=== PATIENT | male | born 1935 | race Caucasian/White ===

== ENCOUNTER 2021-05-10 13:23 | Inpatient (IN) | payer MEDICARE, OTHER ==
[~2021-05-10] VITALS: Ht 182.9 cm; Wt 68.3 kg
[2021-05-10 14:24] LABS: BASO % 0.2 % (0.0-2.0); EOS % 0.2 % (0.0-4.0); GRAN % 86.6 % (42.2-75.2); HEMOGLOBIN 10.9 g/dl (13.5-18.0); LYMPH # 1.1 K/mm3 (1.2-3.4); LYMPH % 7.6 % (20.0-51.0); MEAN CELL VOLUME 87 fl (80.0-100.0); MEAN CORPUSCULAR HEMOGLOBIN 28 pg (27-31); MEAN CORPUSCULAR HGB CONC 32 g/dl (33.0-37.0); MEAN PLATELET VOLUME 10.5 fl (7.4-10.4); MONO # 0.7 K/mm3 (0.1-0.6); MONO % 4.7 % (1.7-9.3); PLATELET COUNT 241 K/mm3 (130-400); RED BLOOD COUNT 3.87 M/mm3 (4.20-5.60); REDCELL DISTRIBUTION WIDTH-CV 13.1 % (11.5-14.5)
[2021-05-10 14:25] LABS: HEMATOCRIT 33.7 % (42.0-52.0)
[2021-05-10 14:40] LABS: ALBUMIN 2.9 gm/dL (3.4-4.8); BILIRUBIN,TOTAL 1.3 mg/dL (0.2-1.2); CALCIUM 9.5 mg/dL (8.4-10.2); CREATININE, serum 1.27 mg/dL (0.72-1.25); TOTAL PROTEIN 7.4 gm/dL (6.2-8.1)
[2021-05-10 14:47] LABS: POTASSIUM 2.8 mmol/L (3.5-4.5)
[2021-05-10 14:48] LABS: TROPONIN-I 0.495 ng/mL (0.00-0.033)
[2021-05-10 15:13] LABS: COLLECTION METHOD CLEAN CATCH
[2021-05-10] MEDS ORDERED: ZOCOR 20MG20 MG PO (15:26)
[2021-05-10] MEDS ORDERED: PRILOSEC 20MG20 MG PO (15:26)
[2021-05-10] MEDS ORDERED: ZESTORETIC 12.51 TAB PO (15:26)
[2021-05-10] MEDS ORDERED: RT ADVAIR 128 DISKUS IH (15:26)
[2021-05-10 15:32] LABS: MUCOUS Present (NOT PRESENT); PH 6 (5-8); SQUAMOUS EPITHELIAL 0-2 /hpf (0-10); URINE APPEARANCE Hazy (CLEAR/HAZY); URINE BACTERIA None Seen /hpf (NONE SEEN); URINE BILIRUBIN Negative (NEGATIVE); URINE BLOOD Negative (NEGATIVE); URINE COLOR Amber (YELLOW); URINE GLUCOSE Negative (NEGATIVE); URINE KETONE 1+ (NEGATIVE); URINE LEUKOCYTE ESTERASE Negative (NEGATIVE); URINE NITRATE Negative (NEGATIVE); URINE PROTEIN(semi-quant) 1+ (NEGATIVE); URINE UROBILINOGEN >=4.0 (NEGATIVE)
[2021-05-10 17:51] VITALS: BP 159/71; PULSE 61; TEMP 98.5
[2021-05-10 20:10] VITALS: BP 124/53; PULSE 56; TEMP 97.5
--- NOTE | 2021-05-10 23:36 | NUR ---
Patient assessed around 1949. Droswy, awakens easily. Alert, oriented, and able to make needs known. High fall risk precautions in place. Peripheral IV to left forearm with IV fluids running per orders. Denies SOB and dyspnea. LS CTA. HRR. Telemetry in place. BSAx4. 1+ edema BLE. Voices no questions, needs, or concerns at this time. In bed with call light within reach. Bed alarm on. Called ERIC Amos around 1999 due to last Potassium being 2.8. Asked if she wanted it to be recheck, and ok with recheck with Troponin at 2099. Recheck of Tropnonin and Potassium came back critical. Updated ERIC Amos. Order to replace Potassium per protocol. MAR updated.
[2021-05-11] VITALS (7 sets, daily range): BP systolic 110–142; BP diastolic 48–64; PULSE 53–64; TEMP 97.5–99
--- NOTE | 2021-05-11 05:34 | NUR ---
Patient has been recieving IV Potassium per protocol. IV fluids continue per orders. Patient denies having pain and discomfort. Has used urinal with staff assistance during the night. Voices no questions, needs, or concerns at this time. In bed with call light within reach. Bed alarm on.
[2021-05-11 06:22] LABS: BASO % 0.2 % (0.0-2.0); EOS # 0.2 K/mm3 (0.0-0.7); EOS % 2.1 % (0.0-4.0); GRAN # 9.4 K/mm3 (1.4-6.5); GRAN % 81.2 % (42.2-75.2); LYMPH # 1.3 K/mm3 (1.2-3.4); LYMPH % 11.3 % (20.0-51.0); MEAN CELL VOLUME 91 fl (80.0-100.0); MEAN CORPUSCULAR HGB CONC 32 g/dl (33.0-37.0); MEAN PLATELET VOLUME 11.2 fl (7.4-10.4); MONO # 0.6 K/mm3 (0.1-0.6); MONO % 4.7 % (1.7-9.3); PLATELET COUNT 179 K/mm3 (130-400); RED BLOOD COUNT 2.74 M/mm3 (4.20-5.60); REDCELL DISTRIBUTION WIDTH-CV 13.2 % (11.5-14.5)
[2021-05-11 06:29] LABS: MEAN CORPUSCULAR HEMOGLOBIN 29 pg (27-31)
[2021-05-11 06:36] LABS: TROPONIN-I 0.347 ng/mL (0.00-0.033)
[2021-05-11 06:40] LABS: CALCIUM 7.9 mg/dL (8.4-10.2); MAGNESIUM 2.2 mg/dL (1.6-2.6); POTASSIUM 3.5 mmol/L (3.5-4.5)
--- NOTE | 2021-05-11 06:46 | NUR ---
Patient Troponin came back this morning at 0.347, trending down from previous result. Called cardiology consult to Dr. Mcdonald and notified of results.
--- NOTE | 2021-05-11 10:47 | NUR ---
PT WAS TRANSFERRED FROM BED TO CHAIR WITH PHYSICAL THERAPY, TRANSFERRED BACK TO BED @ THIS TIME WITH MINIMAL ASSIST, WALKER ET GAIT BELT. PT'S SON IS IN ROOM WITH HIM. IVF INFUSING. PT IS A&O X4, PLEASANT. PT HAS BACK PAIN EXACERBATED BY MOVEMNET ET SITTING IN THE CHAIR. PT DENIES NEEDS. CALL LIGHT WITHIN REACH. BED ALARM IS ON.
--- NOTE | 2021-05-11 15:10 | NUR ---
Sw met with pt to complete intake. The pt lives at home, alone. His son, Ben was present. [place]. Ben,[phone]. He reports corinne CARLTON [phone], DPOA. Pt is independent on all ADLs and uses a cane, walker. Son reports he doesnt want him living alone anymore. PCP is Clementine Maya and gets medications from [facility]. [facility]. DC: SNF or [facility]B Referral faxed to [facility]:emrle dubose
--- NOTE | 2021-05-11 17:57 | NUR ---
PT CONTINUES TO REST IN BED ON HIS RIGHT SIDE SUPINE, STATES THAT HIS BACK PAIN HAS IMPROVED GREATLY. PT DENIES NEEDS. BED ALARM IS ON. CALL LIGHT WITHIN REACH.
--- NOTE | 2021-05-11 21:04 | NUR ---
Patient assessed around 2014. Complained of level 5 pain to back. Given PRN APAP and repositioned in bed. Peripheral IV to left forearm with IV fluids running per orders. Denies SOB and dyspnea. LS CTA. HRR. Telemetry in place. BSAx4. Patient voices no questions, needs, or concerns at this time. In bed with call light within reach. Bed alarm on.
[2021-05-12 03:37] VITALS: BP 146/64; PULSE 59; TEMP 98.3
--- NOTE | 2021-05-12 05:52 | NUR ---
Patient has been resting in bed with call light within reach. High fall risk precautions in place. Repositioned in bed during the night. IV fluids continue per orders. No further complaints of pain or discomfort this shift. Voices no questions, needs, or concerns at this time. In bed with call light within reach.
[2021-05-12 06:11] LABS: BASO % 0.4 % (0.0-2.0); EOS # 0.3 K/mm3 (0.0-0.7); GRAN # 8.5 K/mm3 (1.4-6.5); GRAN % 77.9 % (42.2-75.2); LYMPH # 1.5 K/mm3 (1.2-3.4); LYMPH % 13.3 % (20.0-51.0); MEAN CELL VOLUME 91 fl (80.0-100.0); MEAN CORPUSCULAR HGB CONC 33 g/dl (33.0-37.0); MEAN PLATELET VOLUME 11.1 fl (7.4-10.4); MONO # 0.5 K/mm3 (0.1-0.6); MONO % 4.7 % (1.7-9.3); PLATELET COUNT 168 K/mm3 (130-400); RED BLOOD COUNT 2.69 M/mm3 (4.20-5.60); REDCELL DISTRIBUTION WIDTH-CV 13.2 % (11.5-14.5)
[2021-05-12 06:15] LABS: HEMATOCRIT 24.5 % (42.0-52.0); MEAN CORPUSCULAR HEMOGLOBIN 30 pg (27-31)
[2021-05-12 06:28] LABS: BILIRUBIN,TOTAL 0.3 mg/dL (0.2-1.2); CALCIUM 7.7 mg/dL (8.4-10.2); CREATININE, serum 1.12 mg/dL (0.72-1.25); TOTAL PROTEIN 5.4 gm/dL (6.2-8.1)
[2021-05-12 08:31] VITALS: BP 146/54; PULSE 77; TEMP 97.9
[2021-05-12 11:51] VITALS: BP 138/59; PULSE 66; TEMP 97.3
[2021-05-12 15:39] VITALS: BP 126/52; PULSE 63; TEMP 97.8
--- NOTE | 2021-05-12 16:48 | NUR ---
PT HAS BEEN RESTING IN BED MOST OF THE DAY, VISITING WITH FAMILY IN THE ROOM. PT HAD BEEN HAVING SEVERE PAIN THIS MORNING THAT PT STATES IS NOW MUCH IMPROVED @ THIS TIME. PT HAS BEEN ASISTED TO REPOSITION IN BED SEVERAL TIMES ET LIDOCAINE PATCHES ARE IN PLACE. PT DOES HAVE A REDDENED AREA ON HIS MEDIAL BACK/SPINE WHERE HE STATES THAT IT HURTS. PT STATES THAT BACK PAIN HAD NOT STARTED UNTIL AFTER HE HAD FALLEN @ HOME A FEW DAYS AGO. PERIPHERAL IV WAS SALINE LOCKED EARLIER TODAY, FOLLOWING ORDERS.
--- NOTE | 2021-05-12 17:29 | NUR ---
PT CONTINUES RESTING IN BED. PT HAS ONLY URINATED ONCE TODAY, 150 ML. IVF WERE DCED THIS MORNING. BLADDER SCAN IS COMPLETED ET RESULTS IN 312 ML. PT IS ASSISTED TO STAND TO URINATE. PT HAS DIFFICULTY WITH HIS STREAM, URINE IS LULA ET CLOUDY, URINATES 175 ML. IVF TO BE RESTARTED @ 60 ML/HR PER ORDERS FROM DR. ROMERO. PT IS ENCOURAGED TO DRINK MORE FLUIDS, VERBALIZES UNDERSTANDING.
[2021-05-12 19:50] VITALS: BP 142/63; PULSE 71; TEMP 98.7
--- NOTE | 2021-05-12 20:00 | NUR ---
Pt. sitting up in bed. Pt. is A&OX3, assessment complete. IV to lt. forearm patent, IV fluids infusing per orders. Pt. repositioned for comfort. Pt. denies pain or other needs, call light within reach.
[2021-05-13] VITALS (7 sets, daily range): BP systolic 131–159; BP diastolic 46–89; PULSE 62–77; TEMP 97.6–99.1
[2021-05-13 06:33] LABS: MEAN CELL VOLUME 92 fl (80.0-100.0); MEAN CORPUSCULAR HGB CONC 33 g/dl (33.0-37.0); MEAN PLATELET VOLUME 11.3 fl (7.4-10.4); PLATELET COUNT 175 K/mm3 (130-400); RED BLOOD COUNT 3.08 M/mm3 (4.20-5.60); REDCELL DISTRIBUTION WIDTH-CV 13.4 % (11.5-14.5)
[2021-05-13 06:36] LABS: HEMATOCRIT 28.3 % (42.0-52.0); HEMOGLOBIN 9.2 g/dl (13.5-18.0); MEAN CORPUSCULAR HEMOGLOBIN 30 pg (27-31)
[2021-05-13 06:47] LABS: CALCIUM 7.8 mg/dL (8.4-10.2); CHOLESTEROL RISK RATIO 2.9; CREATININE, serum 1.06 mg/dL (0.72-1.25); POTASSIUM 4.1 mmol/L (3.5-4.5)
[2021-05-13 07:11] LABS: BAND 13 % (0-10); EOSINOPHIL 5 % (0-4); LYMPHOCYTE 14 % (20.0-51.0); NEUTROPHILS 65 % (42.0-75.2); PLATELET ESTIMATE NORMAL (NORMAL)
--- NOTE | 2021-05-13 10:01 | NUR ---
station worker followed up on referral to [facility]. Dior with agency states that they shouldn't have a problem accepting the patient but would like to see updates. They are familiar with the patient as his was there before she passed.I informed her that the patients anticipated discharge is tomorrow. Clinical updates faxed.
--- NOTE | 2021-05-13 11:18 | NUR ---
Assessment completed, alert/oriented, hard of hearing, denies any pain or discomfort this mroing, vital signs are stable, heart RRR/ distal pulses are palpable, lungs CTA/ no resp.difficulty noted, taking PO well, IVF discontinued, PT/OT working with patient this morning, morning meds given, patient denies needs, son in room with him, SW working on discharge planning with patient and family
--- NOTE | 2021-05-13 13:06 | NUR ---
First visit from the garage manager. No needs right now.
--- NOTE | 2021-05-13 15:02 | NUR ---
elementary school social worker met with patient's son Ben who states that the patient might feel more comfortable going to [facility]. [facility]. Referral information faxed and spoke with ALAINA Beard at [facility]. Kisha states that they would be able to accept the patient but would like to know what the bed bug exterminator plan would be. If the plan if for the patient to return home after stay, they would be able to accept. If the patient/family are looking towards LTC then [facility] would be a better option for the patient. Attempt made to reach the patient's son Ben and was unsuccessful.
--- NOTE | 2021-05-13 16:47 | NUR ---
DANIEL spoke with the patients son Ben to establish what the [facility] goal would be. Ben verbalizes that his goal would be to get the patient back home after rehab. His main concern is making sure the patient is stable and safe. Due to the above, agreement was made for the patient to go to [facility]. Attempt made to contact Kisha FOLEY x3 at [facility] and was unsuccessful. Will try again tomorrow.
--- NOTE | 2021-05-13 19:00 | NUR ---
RECEIVED CHANGE OF SHIFT REPORT FROM DAY SHIFT RN.
[2021-05-14 04:48] VITALS: BP 141/72; PULSE 70; TEMP 99.3
--- NOTE | 2021-05-14 07:12 | NUR ---
CHANGE OF SHIFT REPORT GIVEN TO DAY SHIFT RNJERARDO.
[2021-05-14 08:13] LABS: POTASSIUM 3.9 mmol/L (3.5-4.5)
[2021-05-14 08:27] VITALS: BP 157/54; PULSE 68; TEMP 98.7
[2021-05-14] MEDS ORDERED: OMNICEF 300MG300 MG PO (09:42)
[2021-05-14] MEDS ORDERED: PLAVIX 75MG TAB75 MG PO (09:43)
[2021-05-14] MEDS ORDERED: ASPIRIN 81M81 MG/TA2 PO (09:44)
[2021-05-14 09:49] LABS: BASO # 0.1 K/mm3 (0.0-0.2); BASO % 0.5 % (0.0-2.0); EOS # 0.4 K/mm3 (0.0-0.7); EOS % 2.4 % (0.0-4.0); GRAN # 12.1 K/mm3 (1.4-6.5); GRAN % 79.3 % (42.2-75.2); LYMPH # 1.8 K/mm3 (1.2-3.4); LYMPH % 11.9 % (20.0-51.0); MEAN CELL VOLUME 90 fl (80.0-100.0); MEAN CORPUSCULAR HGB CONC 32 g/dl (33.0-37.0); MEAN PLATELET VOLUME 10.9 fl (7.4-10.4); MONO # 0.8 K/mm3 (0.1-0.6); MONO % 5.2 % (1.7-9.3); PLATELET COUNT 166 K/mm3 (130-400); REDCELL DISTRIBUTION WIDTH-CV 13.5 % (11.5-14.5)
[2021-05-14 09:50] LABS: HEMATOCRIT 25.3 % (42.0-52.0); HEMOGLOBIN 8.1 g/dl (13.5-18.0); MEAN CORPUSCULAR HEMOGLOBIN 29 pg (27-31)
--- NOTE | 2021-05-14 09:57 | NUR ---
ASSESSMENT COMPLETE. PT. SITTING UP IN BED. DENIES N/V. PAIN 4/10 IN BACK BUT DENIES WANTING ANY PAIN MEDICATION. [facility]. ICE CREAM MIXER COMMUNICATING WITH SON AND PT. ABOUT DISCHARGING TO SWING BED IN [place]. NO NEEDS AT THIS TIME.
--- NOTE | 2021-05-14 10:00 | NUR ---
print binding and finishing worker contacted by Kisha at [facility]. BILL. Kisha provided update on terminal clerk goal. Her request is for an afternoon admission. DANIEL met with patient and patients son Ben at bedside. Patient's RN at bedside. Ben states that his biggest concern is the patient's pain level. This SW collaborated with Ben and patients RN for discharge plan. Patient will eat lunch and will be given pain medication at approx. 1130 for trip down to [facility]. Discharge time arranged for 1200. Kisha contacted and notified of discharge plan. Patient's clinical updates and dc orders faxed. Patient and son Ben presented with the [facility] form. Education provided and both verbalize that they have no concerns with discharge plan. Patient verbalized that he would like his son to sign form. Signed original placed in the patients chart and copy provided back to the patient. [facility] Son to transport
[2021-05-14 10:05] LABS: CALCIUM 7.5 mg/dL (8.4-10.2); CREATININE, serum 0.87 mg/dL (0.72-1.25)
[2021-05-14 11:37] VITALS: BP 157/54; PULSE 68; TEMP 98.7
--- NOTE | 2021-05-14 12:39 | NUR ---
Discharge paperwork and instructions sent with patient and his son. IV to RFA dc'd catheter tip intact. Attempted to call report to [facility] no answer at the time. Pt wheeled out to son's pickup by staff.
== END 2021-05-14 12:40 | disposition swing bed (61) | DRG 682 ==
LOC: COL.ER 13:23 → SURG 15:14
PROVIDERS: Nurse Practitioner; Physician Assistant; ADMIT Internal Medicine
DX: N17.9 Acute kidney failure, unspecified (principal); J18.9 Pneumonia, unspecified organism; I21.A1 Myocardial infarction type 2; S32.019A Unspecified fracture of first lumbar vertebra, initial encounter for closed fracture; E44.0 Moderate protein-calorie malnutrition; I13.0 Hypertensive heart and chronic kidney disease with heart failure and stage 1 through stage 4 chronic kidney disease, or unspecified chronic kidney disease; Z66 Do not resuscitate; N18.9 Chronic kidney disease, unspecified; I50.9 Heart failure, unspecified; E87.6 Hypokalemia; E78.5 Hyperlipidemia, unspecified; K21.9 Gastro-esophageal reflux disease without esophagitis; J44.9 Chronic obstructive pulmonary disease, unspecified; D64.9 Anemia, unspecified; E83.52 Hypercalcemia; I44.0 Atrioventricular block, first degree; K59.00 Constipation, unspecified; M25.552 Pain in left hip; W07.XXXA Fall from chair, initial encounter; Y93.89 Activity, other specified; Y92.003 Bedroom of unspecified non-institutional (private) residence as the place of occurrence of the external cause; Z87.891 Personal history of nicotine dependence; Z68.20 Body mass index [BMI] 20.0-20.9, adult; Z23 Encounter for immunization
CPT/HCPCS: 99223-AI; 99232-AI; 99233-AI; 99239; A9284; J0696; J3480; J7030